=== PATIENT | male | born 1960 | race Caucasian/White ===

== ENCOUNTER 2018-04-30 10:39 | Day surgery (SDC) | payer BC ==
[2018-04-30] MEDS ORDERED: ONDANSETRON 4 MG INJ IV (13:00)
[2018-04-30] MEDS ORDERED: HYDROmorphONE 1 MG/5 ML IV SYRINGE IV ×3 (13:00)
[2018-04-30] MEDS ORDERED: DIPHENHYDRAMINE 50 MG INJ IV (13:00)
[2018-04-30] MEDS ORDERED: MEPERIDINE 25 MG INJ IV (13:00)
[2018-04-30] MEDS ORDERED: PROPOFOL 20 ML (13:01)
[2018-04-30] MEDS ORDERED: METOCLOPRAMIDE 10 MG INJ (13:02)
[2018-04-30] MEDS ORDERED: ONDANSETRON 4 MG INJ (13:02)
[2018-04-30] MEDS: LIDOCAINE 1%/EPI 30 ML INJ (13:23)
[2018-04-30] MEDS ORDERED: FENTAnyl 50 MCG/ML VIAL (13:35)
== END 2018-04-30 16:15 | disposition home or self-care (01) ==
LOC: SDS 10:39
DX: D23.39 Other benign neoplasm of skin of other parts of face (principal)
CPT/HCPCS: 14040; 88307; 93005